=== PATIENT | female | born 1990 | race Caucasian/White ===

== ENCOUNTER 2025-09-03 17:36 | Emergency (ER) | payer BC ==
[~2025-09-03] VITALS: Ht 165.1 cm; Wt 68.0 kg
[2025-09-03 17:41] VITALS: O2SAT 100
[2025-09-03] MEDS: ONDANSETRON HCL 4MG/2ML INJ IV ONE (18:19)
[2025-09-03] MEDS: MAGNESIUM/ALUMINUM HYDROXIDE/SIMETHICONE 30ML UDC PO ONE (18:19)
[2025-09-03] MEDS: SODIUM CHLORIDE 0.9% 1,000 ML IV ONE (18:19)
[2025-09-03] MEDS: KETOROLAC 15MG/ML VIAL IV ONE (18:20)
[2025-09-03 18:34] LABS: BASOPHILS % 0.4 % (0.0-2.0); EOSINOPHILS % 0.3 % (0.0-5.0); HEMATOCRIT. 42.3 % (36.0-48.0); HEMOGLOBIN. 14.4 g/dL (12.0-16.0); LYMPHOCYTES % 22.5 % (20.0-50.0); MEAN PLATELET VOLUME 8.3 fl (7.4-10.4); MONOCYTES % 6.3 % (2.0-8.0); NEUTROPHILS % 70.5 % (40.0-76.0); PLATELET 255 x1000/uL (130-400); RED BLOOD CELL COUNT 4.74 mill/uL (4.2-5.4); RED CELL DISTRIBUTION WIDTH 12.9 % (11.6-14.6)
[2025-09-03 18:44] LABS: *AMPHETAMINES SCREEN URINE NEGATIVE (NEGATIVE); *BARBITURATES SCREEN URINE NEGATIVE (NEGATIVE); *BENZODIAZEPINES SCREEN URINE NEGATIVE (NEGATIVE); *COCAINE SCREEN URINE NEGATIVE (NEGATIVE); METHADONE URINE SCREEN NEGATIVE (NEGATIVE); OPIATES URINE SCREEN NEGATIVE (NEGATIVE)
[2025-09-03 18:45] LABS: CANNABINOID URINE SCREEN NEGATIVE (NEGATIVE); ECSTASY MDMA SCREEN URINE NEGATIVE (NEGATIVE); PHENCYCLIDINE URINE SCREEN NEGATIVE (NEGATIVE)
[2025-09-03 18:57] LABS: CREATININE 0.8 mg/dL (0.6-1.0); UREA NITROGEN BLOOD 5 mg/dL (9-23)
[2025-09-03 18:58] LABS: PROTEIN TOTAL 6.9 g/dL (6.0-8.3)
[2025-09-03 18:59] LABS: ASPARTATE AMINOTRANSFERASE 63 IU/L (<34); BILIRUBIN DIRECT 0.2 mg/dL (<=3.0)
[2025-09-03 19:00] LABS: BILIRUBIN TOTAL 0.7 mg/dL (0.1-1.0)
[2025-09-03 19:27] LABS: ETHANOL BLOOD < 10 mg/dL (<10)
[2025-09-03 19:33] LABS: B-HCG QUANTITATIVE < 1 mIU/mL (<6)
[2025-09-03] MEDS ORDERED: DICY-18 MT (20:23)
[2025-09-03 20:26] VITALS: BP 124/81; PULSE 84; RESP 16; TEMP 36.7; O2SAT 100
== END 2025-09-03 20:35 | disposition home or self-care (01) ==
LOC: ER 17:36
DX: R10.9 Unspecified abdominal pain (principal); Z79.899 Other long term (current) drug therapy
CPT/HCPCS: 80076; 80305; 80048; 81025; 80320; 84702; 83690; 83735; 85025; 36415; 76705; 93005; 96361; 96374; 96375; 99285; J1885; J2405; J7030; Z7610; G0480